=== PATIENT | male | born 1995 | race Caucasian/White ===

== ENCOUNTER 2017-10-07 16:38 | Emergency (ER) | payer OTHER ==
--- NOTE | 2017-10-07 18:12 | ED Physician Documentation ---
PD HPI CHEST PAIN - Stated complaint Stated Complaint: CHEST PRESSURE - Chief complaint Chief Complaint: Cardiac - History obtained from History obtained from: Patient - History of Present Illness Timing - onset: Other (This is a 22-year-old gentleman who is active duty in the [employer]. He has no health problems and no family history of coronary disease. After lunch of dean and eggs and oats at around noon today he developed nonradiating substernal chest pressure with some sweats but no shortness of breath, dizziness, or nausea. There is no pedal edema, hemoptysis, or calf pain. No personal history of DVT or PE.) Review of Systems Ten Systems: 10 systems reviewed and negative Constitutional: reports: Reviewed and negative Nose: reports: Reviewed and negative Throat: denies: Dental pain / toothache, Sore throat Cardiac: denies: Palpitations, Pedal edema, Calf pain Respiratory: denies: Dyspnea, Cough GI: denies: Abdominal Pain, Nausea PD PAST MEDICAL HISTORY - Past Medical History Past Medical History: No - Past Surgical History Past Surgical History: Yes General: Hiatal hernia repair - Present Medications Home Medications: Ambulatory Orders Medication Instructions Recorded Confirmed No Known Home Medications [No 10/07/17 10/07/17 Known Home Medications] - Allergies Allergies/Adverse Reactions: Allergies Allergy/AdvReac Type Severity Reaction Status Date / Time amoxicillin Allergy Severe Rash Verified 10/07/17 17:08 Penicillins Allergy Severe Rash Verified 10/07/17 17:09 - Social History Does the pt smoke?: No Smoking Status: Never smoker Does the pt drink ETOH?: Yes ETOH Use: Beer Does the pt have substance abuse?: No PD ED PE NORMAL - Vitals Vital signs reviewed: Yes - General General: Alert and oriented X 3, No acute distress - HEENT HEENT: PERRL, Pharynx benign - Neck Neck: Supple, no meningeal sign, No bony TTP - Cardiac Cardiac: RRR, No murmur - Respiratory Respiratory: No respiratory distress, Clear bilaterally - Abdomen Abdomen: Soft, Non tender - Extremities Extremities: No edema, No calf tenderness / cord - Neuro Neuro: Alert and oriented X 3, Normal speech Results - Vitals Vitals: Vital Signs - 24 hr 10/07/17 10/07/17 17:09 18:18 Temperature 36.5 C Heart Rate 62 60 Respiratory 16 16 Rate Blood Pressure 138/96 H 144/88 H O2 Saturation 100 98 Oxygen O2 Source Room air - EKG (time done) 1717 Rate: Rate (enter#) (62) Rhythm: NSR [place]: Normal Intervals: Normal [place] QRS: Normal Ischemia: Normal ST segments. No: ST elevation c/w ischemia Computer interpretation: Agree with computer - Labs Labs: Laboratory Tests 10/07/17 18:24 Troponin I < 0.04 - Rads (name of study) 2v chest Radiology: EMP read contemporaneously (normal) PD MEDICAL DECISION MAKING - ED course ED course: I considered pulmonary embolism in this patient. Clinically the pretest probability of pulmonary embolism is less than 15%. I applied to the PERC rules as follows: The patient's age is under 50, heart rate less than 100, oxygen saturation greater than 94%, the patient does not have a history of DVT or PE. Patient has no recent trauma or surgery. The patient has no hemoptysis. The patient is not on exogenous estrogens. The patient does not have clinical signs suggesting DVT. As such the patient ruled out for pulmonary embolism by PERC criteria. HEART zero Departure - Departure Disposition: 01 Home, Self Care Clinical Impression: Chest pain Qualifiers: Chest pain type: other chest pain Qualified Code(s): R07.89 - Other chest pain ; R07.8 - Other chest pain Condition: Good Record reviewed to determine appropriate education?: Yes Instructions: ED Chest Pain NonCardiac Comments: Ibuprofen as needed for pain. Call your doctor to arrange a follow-up appointment, make the next available appointment. In the interim, return anytime if worse or if new symptoms develop. Your blood pressure was elevated today on check into the emergency department. This does not mean that you have hypertension, it is a common phenomenon to come to the emergency department and have elevated blood pressure. I recommend that you see your primary care physician within the week to have it rechecked when you are feeling better.
--- NOTE | 2017-10-07 19:05 | XRAY Preliminary Report ---
Exam: XR CHEST 2 VIEW PA/LAT IMPRESSION: Normal 2-view chest radiography. [facility] SITE ID: [id number]
--- NOTE | 2017-10-07 19:08 | XRAY Report ---
EXAM: CHEST RADIOGRAPHY EXAM DATE: 10/07/2017 06:52 PM. CLINICAL HISTORY: Chest pain. COMPARISON: None. TECHNIQUE: 2 views. FINDINGS: Lungs/Pleura: No focal opacities evident. No pleural effusion. No pneumothorax. Normal volumes. Mediastinum: Heart and mediastinal contours are unremarkable. Other: None. IMPRESSION: Normal 2-view chest radiography. [facility] Referring Provider Line: [phone] SITE ID: [id number]
[2017-10-07 19:14] VITALS: BP 155/85
== END 2017-10-07 19:14 | disposition home or self-care (01) ==
LOC: ED 16:38
DX: R07.89 Other chest pain (principal); R03.0 Elevated blood-pressure reading, without diagnosis of hypertension
CPT/HCPCS: 36415; 71020; 84484; 93005; 99283; 99284